=== PATIENT | female | born 1980 | race African-American/Black ===

== ENCOUNTER 2017-03-06 22:17 | Emergency (ER) | payer OTHER ==
[~2017-03-06] VITALS: Ht 157.5 cm; Wt 72.6 kg
--- NOTE | 2017-03-06 23:07 | NUR ---
Patient discharged to home in stable conditon. Written and verbal after care instructions given. Patient verbalizes understanding of instructions. Ambulated from ER with stable gait. Patient will be driven home in private vehicle by significant other. All belongings with patient at time of discharge.
[2017-03-06 23:08] VITALS: BP 118/78
== END 2017-03-06 23:09 | disposition home or self-care (01) ==
LOC: ER 22:18
DX: S63.690A Other sprain of right index finger, initial encounter (principal); W10.8XXA Fall (on) (from) other stairs and steps, initial encounter; Y93.89 Activity, other specified; Y92.89 Other specified places as the place of occurrence of the external cause; Y99.8 Other external cause status
CPT/HCPCS: 73130; A4663

== ENCOUNTER 2018-05-13 09:16 | Emergency (ER) | payer OTHER ==
[~2018-05-13] VITALS: Ht 157.5 cm; Wt 72.6 kg
--- NOTE | 2018-05-13 09:45 | NUR ---
Dr Velasquez at the bedside for MSE.
[2018-05-13 10:02] VITALS: BP 117/82
--- NOTE | 2018-05-13 10:02 | NUR ---
Patient discharged to home in stable conditon. Written and verbal after care instructions given. Patient verbalizes understanding of instructions.
== END 2018-05-13 10:03 | disposition home or self-care (01) ==
LOC: ER 09:16
DX: J02.9 Acute pharyngitis, unspecified (principal); Z11.3 Encounter for screening for infections with a predominantly sexual mode of transmission
CPT/HCPCS: 87110; A4663

== ENCOUNTER 2019-01-22 09:19 | Emergency (ER) | payer MEDICAID, OTHER ==
[~2019-01-22] VITALS: Ht 157.5 cm; Wt 75.7 kg
--- NOTE | 2019-01-22 09:35 | NUR ---
DEANGELO LAGUNAS AT BEDSIDE FOR MSE.
--- NOTE | 2019-01-22 09:53 | NUR ---
Patient discharged to home in stable conditon. Written and verbal after care instructions given. Patient verbalizes understanding of instructions. ALL BELONGINGS W/ PT. PT SELF-AMBULATED W/O DIFFICULTY.
[2019-01-22 09:55] VITALS: BP 125/77
== END 2019-01-22 09:55 | disposition home or self-care (01) ==
LOC: ER 09:19
DX: J20.9 Acute bronchitis, unspecified (principal); R19.7 Diarrhea, unspecified
CPT/HCPCS: A4663

== ENCOUNTER 2022-12-07 22:07 | Emergency (ER) | payer MEDICAID, OTHER ==
[~2022-12-07] VITALS: Ht 157.5 cm; Wt 81.6 kg
[2022-12-07] MEDS ORDERED: KETOROLAC TROMETHAMINE 15 MG INJ IM ONE (22:30)
[2022-12-07] MEDS ORDERED: DEXAMETHASONE SOD PHOSPHATE 4 MG INJ IM ONE (22:30)
--- NOTE | 2022-12-07 22:30 | NUR ---
Pt is noted alert, responsive as she came in C/O Sore Throat and Cough [id number]. Pt care continue as awaits MD orders.
[2022-12-07] MEDS ORDERED: KETOROLAC TROMETHAMINE 15 MG INJ ONE (22:37)
[2022-12-07] MEDS ORDERED: DEXAMETHASONE SOD PHOSPHATE 10 MG INJ ONE (22:37)
--- NOTE | 2022-12-07 22:49 | NUR ---
Pt care continue as Lab work, CXR , Ripaid Strep test and She is been Medicated with Decadron 10mg IM and Toradol 15mg IM as ordered.
[2022-12-07 23:16] LABS: *MONOTEST NEGATIVE (NEGATIVE)
[2022-12-07] MEDS ORDERED: AMOX-430 PO (23:31)
[2022-12-07] MEDS ORDERED: AZIT250T13 PO (23:31)
--- NOTE | 2022-12-07 23:38 | NUR ---
Pt is noted off the unit as she is been discharged to home with all discharged instructions given with no S/S off distress or C/O pain.
[2022-12-07 23:40] VITALS: BP 128/72
[2022-12-08] MEDS ORDERED: AMOX-430 PO (00:18)
[2022-12-08] MEDS ORDERED: AZIT250T13 PO (00:18)
== END 2022-12-07 23:41 | disposition home or self-care (01) ==
LOC: ER 22:13
DX: J18.9 Pneumonia, unspecified organism (principal); J02.9 Acute pharyngitis, unspecified; R07.89 Other chest pain
CPT/HCPCS: 99284; 71045; 86308; 86403; 36415; 96372 ×2; J1100; J1885; A4663

== ENCOUNTER 2023-11-15 14:45 | Emergency (ER) | payer MEDICAID ==
[~2023-11-15] VITALS: Ht 157.5 cm; Wt 74.8 kg
[~2023-11-15 14:45] MED LIST: AMOX-430 PO; AZIT250T PO; AZIT250T13 PO; D-AM10TA2 PO; TRAM50TA2 PO
[2023-11-15] MEDS ORDERED: OXYM15MI4 NS (15:27)
[2023-11-15] MEDS ORDERED: GUAI5SYR4 PO (15:27)
[2023-11-15] MEDS ORDERED: ALBU6.7H9 INH (15:27)
[2023-11-15] MEDS ORDERED: PSEU-249 PO (15:27)
[2023-11-15 16:01] VITALS: BP 135/72; TEMP 98.1; O2SAT 97
== END 2023-11-15 16:01 | disposition home or self-care (01) ==
LOC: ER 14:47
DX: J20.8 Acute bronchitis due to other specified organisms (principal); Z98.890 Other specified postprocedural states; Z79.899 Other long term (current) drug therapy
CPT/HCPCS: A4606; A4663

== ENCOUNTER 2025-07-01 15:07 | Emergency (ER) | payer OTHER ==
[~2025-07-01] VITALS: Ht 157.5 cm; Wt 74.8 kg
[~2025-07-01 15:07] MED LIST changes: +ALBU6.7H9 INH; +AMOX-319 PO; -AMOX-430 PO; +GUAI5SYR4 PO; +OXYM15MI4 NS; +PSEU-249 PO
[2025-07-01 15:08] VITALS: BP 118/86
[2025-07-01 15:46] LABS: PLATELET COUNT (AUTO) 284 K/uL (179-408); RED BLOOD CELL COUNT(AUTO) 4.94 MIL/uL (3.63-4.92); RED CELL DISTRIBUTION WIDTH 15.2 % (12.3-17.7); WHITE BLOOD COUNT (AUTO) 5.4 K/uL (3.8-11.8)
[2025-07-01] MEDS ORDERED: ACETAMINOPHEN 500 MG TABLET ONE (15:47)
[2025-07-01 15:52] LABS: CREATININE 0.7 mg/dL (0.6-1.3); SODIUM SERUM 141.0 mmol/L (136-145); UREA NITROGEN, BLOOD 4.0 mg/dL (7-18)
[2025-07-01] MEDS: ACETAMINOPHEN 500 MG TABLET PO ONE (15:52)
[2025-07-01] MEDS ORDERED: AZIT250T13 PO (17:42)
[2025-07-01 17:46] VITALS: BP 120/79; O2SAT 98
== END 2025-07-01 17:46 | disposition home or self-care (01) ==
LOC: ER 15:40
DX: J20.9 Acute bronchitis, unspecified (principal); J90 Pleural effusion, not elsewhere classified; K46.9 Unspecified abdominal hernia without obstruction or gangrene; Z20.822 Contact with and (suspected) exposure to COVID-19
CPT/HCPCS: 99284; 71250; 71045; 87426; 87804 ×2; 80048; 85025; 84145; 36415; 93005; J7040; A4606; A4663; A9150